=== PATIENT | male | born 1955 | race Native Hawaiian/Other Pacific Islander ===

== ENCOUNTER 2016-12-12 06:45 | Day surgery (SDC) | payer OTHER ==
[2016-12-12 07:10] VITALS: BMI 24.3
[2016-12-12] MEDS ORDERED: Propofol 10 mg/ml Inj (20 ML) ONE (08:02)
[2016-12-12] MEDS ORDERED: Lactated Ringer's 500 ML IV ONE (08:12)
--- NOTE | 2016-12-12 08:16 | CP.SDSHP ---
Same Day Surgery H & P - History Proposed Procedure: High risk screening colonoscopy Pre-Op Diagnosis: Personal history of colon polyps - Previous Medical/Surgical History Cardiac: Hypertension Endocrine/Metabolic: Diabetes Previous Surgical History: Cholecystectomy - Allergies Allergies: Allergies No Known Allergies Allergy (Verified 08/23/16 14:28) - Current Medications Current Medications: See reconciliation sheet - Physical Exam General Appearance: WD WN male in NAD Vital Signs: Vital Signs 12/12/16 07:24 Temperature 97.7 F Pulse Rate 79 Respiratory 16 Rate Blood Pressure 139/59 L O2 Sat by Pulse 97 Oximetry Mental Status: Alert & Oriented x3 Neuro: WNL Heart: WNL Lungs: WNL GI: WNL - {Optional Preform as Required} Abdomen: WNL - Impression Impression: Personal history of colon polyps Pt. Evaluated Today:Candidate for Anesthesia & Procedure: Yes - Date & Time Date: 12/12/16 Time: 08:16 Short Stay Discharge - Short Stay Discharge Admitting Diagnosis/Reason for Visit: P/H COLON POLYPS Disposition: HOME/ ROUTINE
[2016-12-12 08:57] VITALS: TEMP 98
[2016-12-12 09:33] VITALS: RESP 13; O2SAT 100
[2016-12-12 10:04] VITALS: BP 150/78; PULSE 70
== END 2016-12-12 09:46 | disposition home or self-care (01) ==
LOC: C.ENDO 06:45
PROVIDERS: ATTEND Internal Medicine Gastroenterology
DX: Z09 Encounter for follow-up examination after completed treatment for conditions other than malignant neoplasm (principal); Z86.010 Personal history of colon polyps; K62.1 Rectal polyp; D12.5 Benign neoplasm of sigmoid colon; I10 Essential (primary) hypertension; E11.9 Type 2 diabetes mellitus without complications
CPT/HCPCS: 45385; 82948; 88305; J2704; J7120